=== PATIENT | female | born 1965 | race Caucasian/White ===

== ENCOUNTER 2017-02-24 10:22 | Day surgery (SDC) | payer OTHER ==
[2017-02-24] VITALS (19 sets, daily range): BP systolic 96–111; BP diastolic 57–70; PULSE 56–86; RESP 10–26; Ht 139.7 cm; Wt 75.0 kg
[~2017-02-24] VITALS: Ht 139.7 cm; Wt 75.0 kg
[~2017-02-24 10:22] MED LIST: CEFAZOLIN 2 GM/50 ML (PMX) 50 ML IVPB ONE; IBUP-1542 PO; SOD CHLORIDE 0.9% 1,000 ML IV ONE
[2017-02-24] MEDS ORDERED: ATOR10TA65 PO (11:11)
--- NOTE | 2017-02-24 11:37 | RADRPT ---
PROCEDURE: XR Chest. CLINICAL INDICATION: Preoperative, ventral hernia TECHNIQUE: Single frontal view of the chest was obtained COMPARISON: None FINDINGS: The heart and mediastinum are within normal limits. The lungs are clear. There is elevation of the right diaphragm. There is no pleural effusion or pneumothorax. RPTAT: AA IMPRESSION: No acute disease. .Geo Nails MD, MD Date Time Electronically viewed and signed by .Geo Nails MD, on 02/24/2017 11:37 .S/
[2017-02-24 11:53] LABS: ADD SCAN DIFF NO
[2017-02-24 12:06] LABS: BASOPHILS % 0.3 % (0.0-2.0); EOSINOPHILS # 0.1 10^3/ul (0.0-0.5); EOSINOPHILS % 0.8 % (0.0-7.0); HEMATOCRIT 40.3 % (37.0-47.0); HEMOGLOBIN 12.8 g/dl (12.0-16.0); LYMPHOCYTES # 2.3 10^3/ul (0.8-2.9); LYMPHOCYTES % 25.3 % (15.0-51.0); MEAN CORPUSCULAR HEMOGLOBIN 22.4 pg (29.0-33.0); MEAN CORPUSCULAR HGB CONC 31.8 g/dl (32.0-37.0); MEAN CORPUSCULAR VOLUME 70.6 fl (82.0-101.0); MEAN PLATELET VOLUME 10.6 fl (7.4-10.4); MONOCYTE # 0.7 10^3/ul (0.3-0.9); MONOCYTES % 7.1 % (0.0-11.0); NEUTROPHILS % 66.3 % (39.0-77.0); PLATELET COUNT 264 10^3/UL (140-415); RED BLOOD COUNT 5.71 10^6/ul (4.20-5.40); RED CELL DISTRIBUTION WIDTH 14.5 % (11.5-14.5); WHITE BLOOD COUNT 9.1 10^3/ul (4.8-10.8)
[2017-02-24 12:27] LABS: INR 0.91; PROTIME 12.2 Sec (12.2-14.2)
[2017-02-24 12:28] LABS: PARTIAL THROMBOPLASTIN TIME 29.8 Sec (25.0-35.0)
[2017-02-24 12:35] LABS: ALBUMIN 4.3 g/dl (3.3-4.9); ALBUMIN/GLOBULIN RATIO 1.3; BILIRUBIN,INDIRECT 0.2 mg/dl (0-1.1); BILIRUBIN,TOTAL 0.2 mg/dl (0.2-1.3); TOTAL PROTEIN 7.6 g/dl (6.1-8.1)
[2017-02-24 12:47] LABS: CALCIUM 8.9 mg/dl (8.4-10.2); CREATININE 0.73 mg/dl (0.44-1.00); POTASSIUM 3.6 mmol/L (3.5-5.1)
[2017-02-24] MEDS ORDERED: PROPOFOL 20 ML ONE (12:54)
[2017-02-24] MEDS ORDERED: LIDOCAINE 2% (SDV) 5 ML INJ ONE (12:54)
[2017-02-24] MEDS ORDERED: MIDAZOLAM 1 MG/ML 2 ML INJ ONE (12:54)
[2017-02-24] MEDS ORDERED: ACETAMINOPHEN 1000MG/100ML IV 0 ML ONE (12:54)
[2017-02-24] MEDS ORDERED: ONDANSETRON 4 MG INJ ONE (12:55)
[2017-02-24] MEDS ORDERED: DEXAMETHASONE 4 MG/ML 1 ML INJ ONE (12:55)
[2017-02-24] MEDS ORDERED: FAMOTIDINE 20 MG INJ ONE (12:55)
--- NOTE | 2017-02-24 13:48 | RADRPT ---
Vent Rate: 82 bpm RR Interval: 0 msec IA Interval: 170 msec QRS Duration: 92 msec QT Interval: 386 msec QTC Interval: 450 msec P-R-T [place]: 25 - 35 - 37 degrees Normal sinus rhythm Low voltage QRS Incomplete right bundle branch block Borderline ECG Electronically Signed By: Erasmo Corey [id number]
[2017-02-24] MEDS ORDERED: CEFAZOLIN 1 GM INJ ONE (14:09)
[2017-02-24] MEDS ORDERED: PHENYLephrine (100 MCG/ML) 5ML SYG ONE (14:17)
[2017-02-24] MEDS ORDERED: SUCCINYLCHOLINE CHLORIDE 100 MG/5 ML SYG IV ONE (14:33)
[2017-02-24] MEDS ORDERED: ROCURONIUM 50 MG INJ ONE (14:33)
[2017-02-24] MEDS ORDERED: GLYCOPYRROLATE 0.4 MG INJ ONE (14:33)
[2017-02-24] MEDS ORDERED: NEOSTIGMINE 3 MG/3 ML SYRINGE ONE ×2 (14:33→14:48)
[2017-02-24] MEDS ORDERED: HYDROmorphONE 2 MG/ML SYG ONE (14:34)
[2017-02-24] MEDS ORDERED: ALBUTEROL 0.5% (NEB) 2.5 MG/0.5 ML AMP ONE (15:20)
[2017-02-24] MEDS ORDERED: ALBUTEROL 0.083% (NEB) 2.5 MG/3 ML AMP ONE (15:25)
[2017-02-24] MEDS ORDERED: FENTAnyl 50 MCG/ML VIAL IV PRN ×2 (15:30)
[2017-02-24] MEDS ORDERED: ONDANSETRON 4 MG INJ IV PRN (15:30)
[2017-02-24] MEDS ORDERED: HYDROmorphONE (0.2 MG/ML) 10ML SYG IV PRN ×2 (15:30)
[2017-02-24] MEDS ORDERED: ALBUTEROL 0.083% (NEB) 2.5 MG/3 ML AMP HHN ONE (15:30)
--- NOTE | 2017-03-04 14:06 | OPR ---
DATE OF OPERATION: 02/24/2017 SURGEON: Fabian Morales MD. PROCEDURES RN: Toro Veras MD. ANESTHESIOLOGIST: Nurse chief cook, Janki Spencer CRNA. PREOPERATIVE DIAGNOSIS: Incarcerated ventral hernia. POSTOPERATIVE DIAGNOSIS: Incarcerated ventral hernia. OPERATION PERFORMED: Ventral incisional herniorrhaphy. ANESTHESIA: General. INDICATIONS FOR PROCEDURE: The patient is a 51-year-old female who previously underwent a laparoscopic cholecystectomy. She developed an enlarging hernia at the supraumbilical port site. On ultrasound the hernia was at least 6 cm in diameter and contained bowel. She was counseled as to the need for surgical repair. She consented and was scheduled for surgery. DESCRIPTION OF PROCEDURE: The patient was brought to the operating theatre and placed under general anesthesia. The abdomen was prepped and draped in the usual sterile fashion. An upper midline incision was made for a length of approximately 8 cm, directly over the palpable hernia. The subcutaneous tissue was dissected with cautery and in the subcutaneous space a very large hernia sac containing bowel was identified. It was circumferentially dissected with cautery down to its base with abdominal wall fascia. The sac was then entered, adhesions were taken down and the bowel was then returned into the abdominal domain. The sac was then sequentially resected with the LigaSure device. Dr. Morales inspected the defect and deemed it suitable for primary repair. It was closed with #1 loop Prolene sutures in running fashion. The wound was then irrigated and minimal bleeding was controlled with cautery. Due to the large space, within the wound cavity, Dr. Morales made the decision to place a #7 Turkish John drain and it was brought through the right side of the abdominal wall. Cut size, and lay within the cavity and secured in place with #2-0 nylon suture in a standard fashion. The skin was the reapproximated with skin william. The patient tolerated the procedure well. The estimated blood loss was 10 mL. There were no complications and the patient was transported in stable condition to the Recovery room. Dictated By: Fabian Morales MD /[email or web address] /Document#: [id number]
== END 2017-02-24 18:20 | disposition home or self-care (01) ==
LOC: SDS 10:22
PROVIDERS: ATTEND Surgery Surgical Oncology
DX: K43.6 Other and unspecified ventral hernia with obstruction, without gangrene (principal); E66.9 Obesity, unspecified; Z68.38 Body mass index [BMI] 38.0-38.9, adult; E78.00 Pure hypercholesterolemia, unspecified
CPT/HCPCS: 49561; 71010; 80053; 82962; 84703; 85025; 85610; 85730; 88302; 93005; 94664; J0690; J1100; J1170; J2250; J2370; J2405; J2710; J3010; J7999; Z7512; Z7610; J0131

== ENCOUNTER 2017-12-30 05:43 | Day surgery (SDC) | END 2017-12-30 10:46 | disposition home or self-care (01) ==

== ENCOUNTER 2018-01-24 12:04 | Emergency (ER) | END 2018-01-24 16:14 | disposition home or self-care (01) ==